=== PATIENT | female | born 1970 | race Caucasian/White ===

== ENCOUNTER 2019-05-23 | Day surgery (SDC) | payer BC ==
[~2019-05-23] MED LIST: NO HOME MEDS; SUMATRIPTAN; ULTRAM50 M1 PO; ZOFRAN ODT4 MG PO
[2019-05-23] MEDS ORDERED: VITAMIN7 PO (07:06)
[2019-05-23] MEDS ORDERED: VITAMI16 PO (07:06)
== END 2019-05-23 09:13 | disposition home or self-care (01) | DRG 951 ==
PROC: 0DJD8ZZ Inspection of Lower Intestinal Tract, Via Natural or Artificial Opening Endoscopic (ICD-10-PCS; principal; 2019-05-23)
DX: Z12.11 Encounter for screening for malignant neoplasm of colon (principal); Z80.0 Family history of malignant neoplasm of digestive organs

== ENCOUNTER 2024-05-23 12:04 | Emergency (ER) | payer BC ==
[~2024-05-23] VITALS: Ht 162.6 cm; Wt 65.8 kg
[~2024-05-23 12:04] MED LIST changes: +IMITREX100 MG PO; +MACROBID100 M1 PO; +VITAMI16 PO; +VITAMIN7 PO
[2024-05-23 14:03] VITALS: BP 122/76
[2024-05-23] MEDS ORDERED: oxyCODONE 10MG/APAP 325 MG 1 COMBO TAB PO ONE (14:05)
[2024-05-23] MEDS ORDERED: KETOROLAC TROMETHAMINE 30 MG/ML SDV IM ONE (14:05)
[2024-05-23 14:15] VITALS: BP 128/80
[2024-05-23 14:30] VITALS: BP 129/76
[2024-05-23] MEDS ORDERED: PERCOCET1 TA4 PO (14:33)
[2024-05-23 14:45] VITALS: BP 122/62
== END 2024-05-23 15:02 | disposition home or self-care (01) | DRG 563 ==
LOC: ED 12:04
DX: S82.032A Displaced transverse fracture of left patella, initial encounter for closed fracture (principal); W01.0XXA Fall on same level from slipping, tripping and stumbling without subsequent striking against object, initial encounter; Y93.H2 Activity, gardening and landscaping; Y92.007 Garden or yard of unspecified non-institutional (private) residence as the place of occurrence of the external cause